=== PATIENT | female | born 2000 | race Asian ===

== ENCOUNTER 2024-02-19 20:49 | Emergency (ER) | payer OTHER, SELFPAY ==
[2024-02-19 21:12] VITALS: BP 128/78; PULSE 91; RESP 16; TEMP 36.9; O2SAT 99; BMI 20.1
--- NOTE | 2024-02-19 21:58 | ED.GENADULT ---
HPI - General Adult General Chief complaint: Urogenital-Female Stated complaint: fever, blood in urine, UTI Time Seen by Provider: 02/19/24 21:41 Source: patient and family Mode of arrival: Ambulatory History of Present Illness HPI narrative: 23-year-old female here for evaluation of approximately 24 hours of fever, blood in her urine, concerns for UTI, urinary frequency and hesitancy. No back pain. No vomiting. Tolerating oral intake. She did take a azo that they purchased [id number] prior to arrival. Related Data Previous Rx's Medication Instructions Recorded nitrofurantoin 100 mg PO Q12H 5 days #10 caps 02/19/24 monohydrate/macrocrystals 100 mg capsule (Macrobid) phenazopyridine 100 mg tablet 100 mg PO TID PRN pain 6 doses #6 02/19/24 (Pyridium) tabs Allergies Allergy/AdvReac Type Severity Reaction Status Date / Time No Known Drug Allergies Allergy Verified 02/19/24 21:12 Review of Systems Constitutional Constitutional: Reports system reviewed and no additional complaints, except as documented Gastrointestinal Gastrointestinal: Reports system reviewed and no additional complaints, except as documented Genitourinary Genitourinary: Reports system reviewed and no additional complaints, except as documented Patient History Social History Smoking Status: Never smoker Smoking Status: Never smoker Substance Use Type: does not use Exam Initial Vital Signs Initial Vital Signs: Vital Signs Temperature 98.4 F 02/19/24 21:12 Pulse Rate 91 H 02/19/24 21:12 Respiratory Rate 16 02/19/24 21:12 Blood Pressure 128/78 02/19/24 21:12 Pulse Oximetry 99 02/19/24 21:12 Oxygen Delivery Method Room Air 02/19/24 21:12 Resp Effort & Inspection: normal respiratory effort Cardio Rate: regular rate GI Inspection: non-distended Course Orders Ordered: ED Orders 02/19/24 21:27 Urine Culture Stat Urine Microscopic Stat Discontinued Medications Nitrofurantoin Macrocrystals (Nitrofurantoin Er 100 Mg Capsule) 100 mg PO NOW ONE Stop: 02/19/24 21:59 Last Admin: 02/19/24 22:03 Dose: 100 mg Documented By: BENNY Phenazopyridine HCl (Phenazopyridine 100 Mg Tablet) 100 mg PO NOW ONE Stop: 02/19/24 21:59 Last Admin: 02/19/24 22:03 Dose: 100 mg Documented By: BENNY Vital Signs Vital signs: Vital Signs - 8 hr 02/19/24 21:12 02/19/24 22:05 02/19/24 22:06 Temperature 98.4 F Pulse Rate 91 H 86 Respiratory Rate 16 Blood Pressure 128/78 Pulse Oximetry 99 96 97 Oxygen Delivery Method Room Air 02/19/24 22:06 Temperature Pulse Rate Respiratory Rate Blood Pressure 132/75 Pulse Oximetry Oxygen Delivery Method Medical Decision Making Lab Data Lab results reviewed: Yes I reviewed the patient's lab results. Labs: Lab Results 02/19/24 Range/Units 21:27 Urine RBC None seen (0-5/HPF) Urine WBC 0-1/hpf (0-5/HPF) Ur Squamous Epith Cells 0-1 /hpf (0-5/HPF) Urine Bacteria Occasional (0-1) (None) Ur Culture Indicated? Cult not indicated Vol Urine Centrifuged 10ml (spun) Point of Care Testing Test Results Negative Urine Dip Bedside Urine Glucose Negative Bedside Urine Bilirubin - Negative Bedside Urine Ketone - Negative Urine Specific [place] 1.005 Bedside Urine Occult Blood +++ Bedside Urine pH 6.0 Bedside Urine Protein - Negative Bedside Urine Urobilinogen - Negative Bedside Urine Nitrite + Positive Bedside Urine Leukocytes + 70 Esterase Point of care testing: Point of Care Testing Test Results Negative Urine Dip Bedside Urine Glucose Negative Bedside Urine Bilirubin - Negative Bedside Urine Ketone - Negative Urine Specific [place] 1.005 Bedside Urine Occult Blood +++ Bedside Urine pH 6.0 Bedside Urine Protein - Negative Bedside Urine Urobilinogen - Negative Bedside Urine Nitrite + Positive Bedside Urine Leukocytes + 70 Esterase MDM Narrative Medical decision making narrative: History physical exam and urinalysis consistent with a urinary tract infection. Low suspicion for pyelo. Was given 1st dose of antibiotics here in the ER. Tolerated this. Will discharge home with a prescription. Urine culture was pending. Will call if needed. Patient was given return precautions. She expressed understanding and agreement. Discharge Plan Departure Patient Disposition: Home Clinical Impression: Urinary tract infection Instructions: DI for Urinary Tract Infection (UTI) Activity Restrictions/Additional Instructions: There is a urine culture pending at the time of your discharge. We will contact you if we need to change antibiotics based on this. If you do not hear from us just continue to take the antibiotics as directed. Increase your fluid intake. Return to the emergency department for new or worsening symptoms. Prescriptions: New nitrofurantoin monohyd/m-cryst [Macrobid] 100 mg capsule 100 mg PO Q12H 5 Days Qty: 10 0RF Rx Instructions: must administer with a meal/food phenazopyridine [Pyridium] 100 mg tablet 100 mg PO TID PRN (Reason: pain) Qty: 6 0RF Referrals: ProviderJayla [Primary Care Provider] - Stand Alone Forms: Patient Portal/API
[2024-02-19 22:02] LABS: Bacteria Urine Occasional (0-1); Culture Indicated Urine Cult Not Indicated; RBC Urine None Seen (0-5/HPF); Squamous Epithelial Cell Urine 0-1 /HPF (0-5/HPF); Urine Volume 10mL (spun); WBC Urine 0-1/HPF (0-5/HPF)
[2024-02-19] MEDS: PHENAZOPYRIDINE 100 MG TABLET PO (22:03)
[2024-02-19] MEDS: NITROFURANTOIN ER 100 MG CAPSULE PO (22:03)
[2024-02-19 22:05] VITALS: O2SAT 96
[2024-02-19 22:06] VITALS: BP 132/75; PULSE 86; O2SAT 97
== END 2024-02-19 22:18 | disposition home or self-care (01) ==
PROVIDERS: Emergency Provider Emergency Medicine
DX: N39.0 Urinary tract infection, site not specified (principal)
CPT/HCPCS: 81003; 81015; 81025; 87086; 99283